=== PATIENT | female | born 1970 | race Caucasian/White ===

== ENCOUNTER 2020-07-04 11:32 | Outpatient (REF) | payer SELFPAY | END 2020-07-04 11:33 | disposition home or self-care (01) | LOC: HO.HAP 11:32 | PROVIDERS: PCP Internal Medicine; Visit Provider Internal Medicine | DX: Z13.89 Encounter for screening for other disorder (principal) | CPT/HCPCS: 92700 ==

== ENCOUNTER 2020-12-12 08:58 | Outpatient (REF) | payer SELFPAY | END 2020-12-12 08:59 | disposition home or self-care (01) | LOC: HO.HAP 08:58 | PROVIDERS: Visit Provider Internal Medicine | DX: Z46.1 Encounter for fitting and adjustment of hearing aid (principal) | CPT/HCPCS: V5267 ==

== ENCOUNTER 2021-08-23 10:45 | Outpatient (REF) | payer SELFPAY | END 2021-08-23 10:46 | disposition home or self-care (01) | LOC: HO.HAP 10:45 | PROVIDERS: Visit Provider Internal Medicine | DX: Z46.1 Encounter for fitting and adjustment of hearing aid (principal); H90.6 Mixed conductive and sensorineural hearing loss, bilateral | CPT/HCPCS: V5267 ==

== ENCOUNTER 2021-12-26 10:34 | Outpatient (REF) | payer SELFPAY | END 2021-12-26 10:35 | disposition home or self-care (01) | LOC: HO.HAP 10:34 | PROVIDERS: Visit Provider Internal Medicine | DX: Z46.1 Encounter for fitting and adjustment of hearing aid (principal); H90.6 Mixed conductive and sensorineural hearing loss, bilateral; H69.92 Unspecified Eustachian tube disorder, left ear | CPT/HCPCS: V5014 ==

== ENCOUNTER 2022-12-30 15:33 | Outpatient (REF) | payer SELFPAY | END 2022-12-30 15:34 | disposition home or self-care (01) | LOC: HO.HAP 15:33 | PROVIDERS: Visit Provider Internal Medicine | DX: Z13.89 Encounter for screening for other disorder (principal) ==

== ENCOUNTER 2023-01-01 16:13 | Outpatient (REF) | payer SELFPAY | END 2023-01-01 16:14 | disposition home or self-care (01) | LOC: HO.HAP 16:13 | PROVIDERS: Visit Provider Internal Medicine | DX: Z46.1 Encounter for fitting and adjustment of hearing aid (principal); H90.6 Mixed conductive and sensorineural hearing loss, bilateral; H69.92 Unspecified Eustachian tube disorder, left ear | CPT/HCPCS: V5299 ==

== ENCOUNTER 2023-06-07 10:48 | Emergency (ER) | payer OTHER, SELFPAY ==
--- NOTE | ~2023-06-07 | CT_ITS ---
EXAMINATION: CT ANGIOGRAM OF THE CHEST WITH AND WITHOUT CONTRAST (CT PULMONARY ANGIOGRAM FOR PE) CLINICAL INFORMATION: Reason for Exam + dimer , cp COMPARISON: None available. TECHNIQUE: Prior to contrast administration, noncontrast localization images were obtained. Subsequently, multidetector volumetric imaging was performed from the thoracic inlet to below the diaphragms following the administration of 65 mL Omnipaque 350 intravenous contrast. No contrast reaction reported Sagittal, coronal, and MIP oblique sagittal reformatted images were obtained on the CT workstation, uploaded to PACS, and reviewed. This CT examination was performed using dose optimization techniques as appropriate, variously including the following: *Automated exposure control *Adjustment of mA and/or kV according to patient size (this includes techniques or standardized protocols for targeted exams where dose is matched to indication/reason for exam; i.e. extremities or head) *Use of iterative reconstruction technique Total exam dose-length product 283 mGy-cm FINDINGS: QUALITY OF STUDY/CONTRAST BOLUS: Satisfactory. PULMONARY ARTERIES: No pulmonary emboli. THORACIC AORTA: No aneurysm. LUNG: The lungs are well-expanded with bilateral dependent atelectasis. No consolidation, mass or pulmonary nodules seen. PLEURA: No pleural effusion or pneumothorax. MEDIASTINUM: Normal heart size. No pericardial effusion. No hilar or mediastinal lymphadenopathy. No evidence of septal bowing or right heart strain. CORONARY ARTERY CALCIFICATION: None visualized on this study. CHEST WALL/AXILLA: No axillary or internal mammary lymphadenopathy. OSSEOUS STRUCTURES: No aggressive lytic or sclerotic process seen. UPPER ABDOMEN: Unremarkable. No reflux of contrast into the hepatic veins to suggest elevated right heart pressures. CT/CT angio chest PE protocol IMPRESSION: No evidence of PE. No evidence of aortic aneurysm or dissection. Bibasilar atelectasis. VTE: negative
--- NOTE | ~2023-06-07 | XR_ITS ---
EXAMINATION: XR CHEST CLINICAL INFORMATION: Severe chest pain COMPARISON: X-ray 04/12/2008 TECHNIQUE: Frontal view of the chest was obtained. FINDINGS: Normal cardiomediastinal silhouette. There is hazy opacities in the left lung base, which could reflect atelectasis or infiltrate. No pleural effusion or pulmonary edema. No significant pneumothorax. No acute osseous abnormality seen. XR/XR chest 1V IMPRESSION: Left basilar opacities could reflect atelectasis or infiltrate.
--- NOTE | 2023-06-07 10:51 | ECG_ITS ---
Test Reason : CHEST PAIN Blood Pressure : / mmHG Vent. Rate : 104 BPM Atrial Rate : 104 BPM P-R Int : 132 ms QRS Dur : 088 ms QT Int : 346 ms P-R-T Axes : 059 -14 032 degrees QTc Int : 454 ms Sinus tachycardia RSR' or QR pattern in V1 suggests right ventricular conduction delay Abnormal ECG When compared with ECG of 20-APR-2018 18:16, Vent. rate has increased BY 44 BPM Referred By: Generic ED Physician Electronically Signed By:PERLA RAMIREZ MD
[2023-06-07 11:20] VITALS: BP 157/87; PULSE 90; RESP 17; TEMP 36.8; O2SAT 95; BMI 29.9
[2023-06-07 11:55] LABS: MANUAL DIFF FLAG NO
[2023-06-07 11:56] LABS: Basophils Percent Auto 0.5 % (0-2); Eosinophils Absolute Auto 0.4 X10*3/uL (0.0-0.4); Eosinophils Percent Auto 4.4 % (0-4); Hematocrit 45.1 % (37.0-47.0); Hemoglobin 14.6 g/dl (12.0-16.0); Imm Gran Abs Auto 0.02 X10*3/uL (0.00-0.03); Imm Gran Pct Auto 0.3 % (0.0-0.4); Lymphocytes Absolute Auto 2.1 X10*3/uL (1.2-4.9); Lymphocytes Percent Auto 26.1 % (20-40); Mean Corpuscular HGB Conc 32.4 g/dl (31.0-35.0); Mean Corpuscular Volume 86.6 fL (80.0-98.0); Mean Platelet Volume 9.8 fL (9.4-12.3); Monocytes Absolute Auto 0.4 X10*3/uL (0.1-1.2); Monocytes Percent Auto 5.2 % (2-11); Neutrophils Absolute Auto 5.1 x10*3/uL (2.0-8.3); Neutrophils Percent Auto 63.5 % (45-73); Platelet Count 229 X10*3/uL (160-400); Red Blood Count 5.21 X10*6/uL (4.20-5.50); White Blood Count 7.9 X10*3/uL (4.8-10.8)
[2023-06-07 12:14] LABS: Alanine Aminotransferase 36 U/L (0-31); Albumin Level 4.3 g/dL (3.5-5.0); Alkaline Phosphatase 85 U/L (39-117); Anion Gap 14 (12-20); Aspartate Amino Transferase 27 U/L (5-31); Blood Urea Nitrogen 18 mg/dL (9-16); Calcium 9.7 mg/dL (8.4-10.2); Carbon Dioxide 24 mmol/L (22-29); Chloride 109 mmol/L (96-108); Creatinine Clr Calc Pharmacy 98.3; Estimated Glomerular Filt Rate > 60; Glucose Random 145 mg/dL (60-115); Magnesium 2.3 mg/dL (1.6-2.6); Potassium 4.5 mmol/L (3.3-5.1); Sodium 142 mmol/L (135-145)
[2023-06-07 12:17] LABS: B Type Natriuretic Peptide < 10 pg/mL (<100)
[2023-06-07 12:24] LABS: Troponin-I High Sensitivity < 2.7 ng/L (<3.5-17.0)
--- NOTE | 2023-06-07 12:50 | ED_ITS ---
HPI - General Adult General Chief complaint: General Medical Stated complaint: thinks had a heart attack last night no symptons Time Seen by Provider: 06/07/23 13:19 Source: patient Mode of arrival: ambulatory Limitations: no limitations History of Present Illness HPI narrative: 53 year old female current daily smoker 1/2 PPD presents w/ cheest discomfort X 2 days, she states shes concerned she could of had a heart attack. She reports that yesterday the chest pain started after eating lunch, it was constant in nature a pressure is/discomfort to the substernal region without radiation she is unclear whether not she had shortness of breath, possibly. She reports that went on all day until 18:00 where she had a sharp pain in the substernal region followed by an episode of vomiting, patient reports she fell much better after vomiting. At this time states boring discomfort in the substernal region. No fevers, chills, headache, vision changes, dizziness, weakness. No significant personal or family cardiac history. Patient does report current daily smoker denies history of malignancy, recent travel, history of DVT or PE. Related Data Previous Rx's Medication Instructions Recorded cyclobenzaprine 10 mg tablet 10 mg PO BEDTIME PRN muscle spasm 06/07/23 #7 tabs Allergies Allergy/AdvReac Type Severity Reaction Status Date / Time egg [EGG] Allergy Intermediate UNKNOWN Unverified 05/11/20 15:46 meperidine [From DEMEROL] Allergy Intermediate NAUSEA/VOMI Unverified 05/11/20 15:46 T aspirin [ASPIRIN] Allergy Unknown UNKNOWN, Unverified 05/11/20 15:46 redness and itching metformin AdvReac Unknown diarrhea Verified 06/30/18 00:00 Eggs/Apples/Oats Allergy Unknown redness Uncoded 06/30/18 00:00 and itching Review of Systems 2 Review of Systems: Constitutional : No Weight loss, No Fever, No Chills, No Fatigue, No Malaise ENT/Mouth : No sore throat, No Rhinorrhea Eyes: No Eye Pain, No Swelling, No Redness Cardiovascular : + Chest Pain, No SOB, No Dyspnea on Exertion, No Orthopnea, No Edema, No Palpitations Respiratory : No Cough, No Sputum, No Wheezing Gastrointestinal : No Nausea, No Vomiting, No Diarrhea, No Constipation, No abdominal Pain, No Hematochezia, No Melena Genitourinary : No Dysuria, No Urinary Frequency, No Hematuria, Musculoskeletal : No joint pain, No Myalgias, No Joint Swelling Skin : No Skin Lesions, No rash Neuro : No Weakness, No Numbness, No Dizziness, No Headache Psych : No Anxiety/Panic, No Depression All other systems reviewed and are negative Yes all other systems are reviewed and are negative [facility] Past Medical History Attestation statement: The following information was validated with the patient. Source: old records reviewed and nursing notes reviewed Social History Social History Alcohol intake: current Alcohol intake frequency: holidays/special occasions only Smoked in Last 30 Days: Yes Use of substances other than those prescribed or required for medical reasons: No Advance Directives: No Advance Directives Information Provided: Yes Patient : No Physical Exam ED Vital Signs: Vital Signs - 24 hr 06/07/23 11:20 06/07/23 13:23 06/07/23 13:52 Temperature 98.2 F Pulse Rate 90 77 77 Respiratory Rate 17 18 16 Blood Pressure 157/87 H 132/85 142/83 H Pulse Oximetry 95 96 96 Oxygen Delivery Method Nasal Cannula Room Air Room Air 06/07/23 16:12 Temperature 97.9 F Pulse Rate 78 Respiratory Rate 18 Blood Pressure 140/86 H Pulse Oximetry 98 Oxygen Delivery Method Room Air BMI result Body Mass Index 29.9 vss Appearance: Alert.? Oriented X3.? No acute distress.? Head: Normocephalic, atraumatic, no step-offs or deformities Eyes: Pupils equal, round and reactive to light.? Neck: Normal inspection.? Neck supple.? CVS: Normal heart rate and rhythm.? Pulses normal.? Slight discomfort with palpation overlying the substernal region Respiratory: No respiratory distress.? Breath sounds normal.? Abdomen: Soft and nontender.? Skin: Skin warm and dry.? Normal skin color.? Normal skin turgor.? Extremities: No lower extremity edema.? No calf ttp, negative ed. 5/5 strength to bilateral upper and lower extremities Neuro: Oriented X 3.? No motor deficit.? No sensory deficit. CN 2-12 intact Course Course Course Narrative: This is a rapid medical exam. Deferred additional HPI, ROS, PE to primary provider. 53 yo female with history of IDDM. cholecystectomy here with episode of upper abdominal pain with nausea/vomiting after eating pizza yesterday. Some mild discomfort today but feels much better. +cough which she reports as seasonal. +smoking history No diff breathing, fevers. Will obtain labs, EKG, CXR VSS Reevaluation(s) Reevaluation #1: CBC with no acute findings. Chemistry unremarkable no acute findings requiring intervention. Troponin negative, normal BNP. Lipase pending. EKG nonischemic. Added D-dimer. Time: 13:52 Reevaluation #2: D-dimer 235. Will order CTA. Time: 14:38 Reevaluation #3: Second troponin also negative. Beta hCG negative. CTA with no evidence of PE, no evidence of aortic aneurysm or dissection. Bibasilar atelectasis noted. VT negative. Patient feeling well. Will give her cyclobenzaprine is this is may be musculoskeletal in nature she is describing a sore sensation to the center of her chest. Will have her follow-up with Cardiology peer Educated patient on diagnosis and treatment plan, answered all question, patient verbalizes understanding. At this time patient will be discharged home, advised to return with new or worsening symptoms. Educated on worrisome signs and symptoms and when to return. At this time I feel comfortable discharge home. Time: 16:23 Medications Administered Discontinued Medications Generic Name Dose Route Start Last Admin Trade Name Freq PRN Reason Stop Dose Admin Iohexol 65 ml 06/07/23 15:06 06/07/23 15:06 Iohexol 350 Mg/Ml 75 Ml Infus..Btl IV 06/07/23 15:07 65 ml ONCE ONE Administration Medical Decision Making Medical Decision Making [facility] Narrative: 1339 53-year-old female presents with chest pain yesterday, she is concerned she could have had a heart attack. Reports some discomfort in her chest however states symptoms have pretty much resolved. Physical examination Slight discomfort with palpation overlying the substernal region. Likely non cardiac related cp versus musculoskeletal pain. Unlikely ACS, PE, disection,pna. Other differentials include anxiety. Vomiting could be due to anxiety unlikely acute abdomen, obstruction.Possible viral illness. Plan- labs, imaging Differential Diagnosis Differential Diagnoses: The differential diagnosis associated with the presentation includes Likely non cardiac related cp. Unlikely ACS, PE, disection,pna. Other differentials include anxiety. Vomiting could be due to anxiety unlikely acute abdomen, obstruction.Possible viral illness. Admission/Observation Consideration of admission/observation: Escalation of care including admission/observation considered unlikely Lab Data MDM Lab Attestation statement: I reviewed the patient's lab results. 06/07/23 11:49 06/07/23 11:49 Labs: Lab Results 06/07/23 06/07/23 Range/Units 11:49 13:51 WBC 7.9 (4.8-10.8) X10*3/uL RBC 5.21 (4.20-5.50) X10*6/uL Hgb 14.6 (12.0-16.0) g/dl Hct 45.1 (37.0-47.0) % MCV 86.6 (80.0-98.0) fL MCH 28.0 (27.0-33.0) pg MCHC 32.4 (31.0-35.0) g/dl RDW 13.0 (11.0-16.0) % Plt Count 229 (160-400) X10*3/uL MPV 9.8 (9.4-12.3) fL Immature Gran % (Auto) 0.3 (0.0-0.4) % Neut % (Auto) 63.5 (45-73) % Lymph % (Auto) 26.1 (20-40) % [place] % (Auto) 5.2 (2-11) % Eos % (Auto) 4.4 H (0-4) % Baso % (Auto) 0.5 (0-2) % Lymph # (Auto) 2.1 (1.2-4.9) X10*3/uL [place] # (Auto) 0.4 (0.1-1.2) X10*3/uL Eos # (Auto) 0.4 (0.0-0.4) X10*3/uL Baso # (Auto) 0.0 (0.0-0.2) X10*3/uL Abs Immat Gran (auto) 0.02 (0.00-0.03) X10*3/uL Absolute Neuts (auto) 5.1 (2.0-8.3) x10*3/uL Absolute Nucleated RBC 0.000 (0.0-0.012) X10*3/uL Nucleated RBC % (auto) 0.0 (0.0-0.2) /100WBC D-Dimer High Sensitivty 235 NG/ML Sodium 142 (135-145) mmol/L Potassium 4.5 (3.3-5.1) mmol/L Chloride 109 H (96-108) mmol/L Carbon Dioxide 24 (22-29) mmol/L Anion Gap 14 (12-20) BUN 18 H (9-16) mg/dL Creatinine 0.78 (0.5-1.4) mg/dL Estim Creat Clear Calc 98.3 Estimated GFR > 60 Random Glucose 145 H (60-115) mg/dL Calcium 9.7 (8.4-10.2) mg/dL Magnesium 2.3 (1.6-2.6) mg/dL Total Bilirubin 1.0 (0.0-1.0) mg/dL AST 27 (5-31) U/L ALT 36 H (0-31) U/L Alkaline Phosphatase 85 (39-117) U/L Troponin I High Sens < 2.7 < 2.7 (<3.5-17.0) ng/L B-Natriuretic Peptide < 10 (<100) pg/mL Total Protein 7.0 (6.5-8.0) g/dL Albumin 4.3 (3.5-5.0) g/dL Lipase 14 (8-78) U/L Beta HCG, Quant < 2 mIU/mL Independent Interpretation I performed an independent interpretation of an: Plain X-Ray (XR/XR chest 1V IMPRESSION: Left basilar opacities could reflect atelectasis or infiltrate. ) and CT Scan (CT/CT angio chest PE protocol IMPRESSION: No evidence of PE. No evidence of aortic aneurysm or dissection. Bibasilar atelectasis. VTE: negative) Radiology Impression Discussion of test interpretation with radiology: I have reviewed the radiologist's reading. Chronic Conditions Patient?s care impacted by: Hypertension Critical Care Time Critical Care Time Critical Care Time: No Discharge Plan Discharge Clinical Impression: Chest pain not due to acute coronary syndrome Patient Disposition: Home, Self-Care Instructions: Chest Pain (ED) Additional Instructions: Take your medications as prescribed. If you were prescribed antibiotics today, it is important that you take your medication to their entirety, do not skip any doses, do not finish them early. Follow-up with your primary care provider this week. Follow-up with cardiology as needed Return to the emergency department with new or worsening symptoms. Such as fevers, chills, chest pain, shortness of breath, nausea, vomiting, dizziness, headache, vision changes, lethargy In case of emergency call 911 XR/XR chest 1V IMPRESSION: Left basilar opacities could reflect atelectasis or infiltrate. CT/CT angio chest PE protocol IMPRESSION: No evidence of PE. No evidence of aortic aneurysm or dissection. Bibasilar atelectasis. VTE: negative Prescriptions: New cyclobenzaprine 10 mg tablet 10 mg PO BEDTIME PRN (Reason: muscle spasm) Qty: 7 0RF Referrals: [facility] [Provider Group] - 2 days Lara Carter PA-C [Primary Care Provider] - 2 days Stand Alone Forms: Work/School Release
[2023-06-07 13:23] VITALS: BP 132/85; PULSE 77; RESP 18; O2SAT 96
--- NOTE | 2023-06-07 13:32 | PC.NURSE ---
a&ox3, vss and up to date, nsr on the security monitor. pt comes in today d/t worry about feeling like she had a possible heart attack yesterday at work. pt currently c/o 1/10 epigastric discomfort and headache. pain does not radiate anywhere at this time. pt states she was at work yesterday when she had an 11/10 epigastric pain after eating at an event. pt states she had 1 episode of vomiting but has not had another episode since. abdomen nontender upon palpation. normoactive bs noted upon ausculation. pt currently resting comfortably in no apparent distress. respirations even and unlabored. call madera placed within reach.
--- NOTE | 2023-06-07 13:47 | PC.NURSE ---
tech bedside obtaining repeat labs at this time.
[2023-06-07 13:52] VITALS: BP 142/83; PULSE 77; RESP 16; O2SAT 96
[2023-06-07 13:53] LABS: Lipase 14 U/L (8-78)
[2023-06-07 14:14] LABS: D Dimer High Sensitivity 235 NG/ML
[2023-06-07 14:26] LABS: Troponin-I High Sensitivity < 2.7 ng/L (<3.5-17.0)
[2023-06-07] MEDS: iohexoL 350 MG/ML 75 ML INFUS..BTL 65 ML IV (15:06)
[2023-06-07 15:07] LABS: HCG Quantitative < 2 mIU/mL
--- NOTE | 2023-06-07 15:13 | PC.NURSE ---
pt returned from CT at this time. nsr on the hypo splasher. pt verbalizing no change in pain level at this time. still rating pain at a 2/10. respirations even and unlabored. bedside for support. call madera placed within reach.
[2023-06-07 16:12] VITALS: BP 140/86; PULSE 78; RESP 18; TEMP 36.6; O2SAT 98
== END 2023-06-07 16:56 | disposition home or self-care (01) ==
PROVIDERS: Nurse Practitioner Family; Physician Assistant; Emergency Provider Emergency Medicine; PCP Physician Assistant Medical
DX: R07.9 Chest pain, unspecified (principal); R10.10 Upper abdominal pain, unspecified; R11.2 Nausea with vomiting, unspecified
CPT/HCPCS: 36415; 71045; 71275; 80053; 83690; 83735; 83880; 84484; 84702; 85025; 85379; 93005; 99284; Q9967

== ENCOUNTER 2024-05-12 16:11 | Outpatient (REF) | payer SELFPAY ==
--- NOTE | 2024-05-12 16:42 | MHC.AU.HA3 ---
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[employer] Warranty: 05/24/2021 Doorkeeper Loss and Damage Warranty: [facility] Service Plan: Battery Size: 312 [employer] Training Officer/Slim Tube: Size 2 85 gain Earmold/Dome/CShell/SlimTip: Type of Wax Guard: Prowax minifit Dispensed By: [facility] Date of Fittin05/13/2018 Left Ear: Make, Model, Color, Serial Number: [id number] [employer]keeper [employer] Warranty: 05/24/2021 Doorkeeper Loss and Damage Warranty: [facility] Service Plan: Battery Size: 312 [employer] Training Officer/Slim Tube: Size 2 85 gain Earmold/Dome/CShell/SlimTip: Type of Wax Guard: Prowax minifit Dispensed By: [facility] Date of Fittin05/13/2018 Follow-Up Summary: Marie is here today reporting that she had to glue a part of her left edge brusher, would like hearing aids checked. Reports that both aids seem to be working fine but she is concerned about the glue. Cleaned and checked aids. Listening check is positive right and left. Left is amplifying clearly without distortion or intermittency. Unclear what came loose but the need to glue seems to have had no functional impact. Discussed cost to replace edge brusher. Marie does not wish to replace edge brusher at this time. Briefly discussed new amplification, need for new audiogram. Recommendations: Recommendations: Hearing instrument follow-up or maintenance as needed. Diagnosis Code(s): Primary Diagnosis: H90.6 Mixed Hearing Loss, Bilateral Signature: Provider: Rick Murdock, [facility]
== END 2024-05-12 16:12 | disposition home or self-care (01) ==
LOC: HO.HAP 16:11
PROVIDERS: Visit Provider Physician Assistant Medical
DX: Z46.1 Encounter for fitting and adjustment of hearing aid (principal); H90.6 Mixed conductive and sensorineural hearing loss, bilateral
CPT/HCPCS: 92593